=== PATIENT | male | born 1950 | race Hispanic/Latino ===

== ENCOUNTER → 2022-09-01 | Outpatient (CLI) | payer OTHER, MEDICARE ==
[~2022-09-01] MED LIST: ATOR40TA71 PO; BRIM5DRO OU; CHOL400C9 PO; LISI2.5T13 PO; METF-527 PO
== END | disposition home or self-care (01) ==
LOC: RAH 10:17
PROVIDERS: ATTEND Internal Medicine Gastroenterology
DX: R68.81 Early satiety (principal); R14.0 Abdominal distension (gaseous)
CPT/HCPCS: 78264; A9541